=== PATIENT | male | born 1990 | race Caucasian/White ===

== ENCOUNTER 2020-06-02 09:39 | Emergency (ER) | payer OTHER, SELFPAY ==
--- NOTE | ~2020-06-02 | CT_ITS ---
EXAMINATION: CT abdomen pelvis w con DATE: 06/02/2020 11:26 INDICATION: Low abdominal pain. Diarrhea. TECHNIQUE: Computed tomography (CT) of the abdomen and pelvis was performed with 100 mL Omnipaque 350 intravenous contrast. Automated exposure control and iterative reconstruction technique were employe d. The dose-length product was 1031.44 mGy-cm. COMPARISON: CT abdomen and pelvis 08/18/2019 FINDINGS: The visualized portions of the lung bases demonstrate mild atelectasis on the right. No ple ural effusion. The heart size is normal. No pericardial effusion. The liver, gallbladder, spleen, clark creas, adrenal glands, and kidneys are normal. There is a left inguinal hernia containing fat. There are no dilated loops of bowel. There are changes of appendectomy. There are no pathologically enlarge d lymph nodes. There is no free intraperitoneal fluid. There is mild lumbar spondylosis. IMPRESSION: 1. Small left inguinal hernia containing fat. Reviewed, dictated and finalized at location A.
[2020-06-02 09:42] VITALS: BP 146/82; PULSE 79; RESP 20; TEMP 35.9; O2SAT 100
--- NOTE | 2020-06-02 09:51 | PC.NURSE ---
Pt to ED with complaints of lower abdominal cramping and diarrhea x7 days. Pt denies blood in stool. Denies nausea, vomiting, or fevers.
--- NOTE | 2020-06-02 09:57 | ED.ABDPAIN ---
HPI - Abdominal Pain General Chief Complaint: Abdominal Pain Stated Complaint: abd pain/diarrhea Time Seen by Provider: 06/02/20 09:49 Source: patient Mode of arrival: ambulatory Limitations: no limitations History of Present Illness HPI narrative: This patient is a 29 year old male who presents for evaluation of diarrhea and lower abdominal pain. He reports he has been having diarrhea for 7 days. Today he has had 3 episodes of loose stool but nonbloody. He also reports left lower abdominal pain before he has an episode of diarrhea. He reports mild pain currently. He thinks this diarrhea may have been caused by some deer meat he ate 1 week ago. He denies nausea, vomiting, fever, cough, sob, sore throat or loss of taste or smell. He has been taking immodium without relief. Related Data Allergies Allergy/AdvReac Type Severity Reaction Status Date / Time amlodipine Allergy Intermediate red face, Verified 06/02/20 09:43 Headaches losartan Allergy Intermediate red face Verified 06/02/20 09:43 and headaches Review of Systems Review of Systems: All systems reviewed & are unremarkable except as noted in HPI and below Constitutional: Constitutional: Denies chills and Denies fever(s) Respiratory: Respiratory: Denies cough and Denies dyspnea Gastrointestinal: Gastrointestinal: Reports abdominal pain, Reports diarrhea, Denies nausea and Denies vomiting Genitourinary: Genitourinary: Denies hematuria and Denies oliguria [facility] Past Medical History Medical History (Updated 06/02/20 @ 12:00 by Zuleima Rose MD) Hypertension Surgical History Surgical History (Updated 06/02/20 @ 10:01 by Zuleima Rose MD) History of eye surgery Hx of appendectomy Family History Family History Father Hypertension Social History Social History Smoking status: Former smoker Second hand tobacco smoke exposure: No Smoking end date: 08/17/14 Alcohol intake: current Substance use: current Substance use type: marijuana Other substance usage details: Occasional marijuana use. No recent use. Additional occupation/education comments: The patient works at [employer]. Gender identity (if verbalized by the patient): Male Spiritual care concerns: No Exam Const: General: no acute distress and alert Orientation/consciousness: patient oriented x3 HENMT: Head: atraumatic Face and sinus: face symmetric Eyes: EOM: EOMs intact bilaterally Resp: Effort & Inspection: normal respiratory effort and no retractions Auscultation: clear to auscultation bilaterally Cardio: Rate: regular rate Rhythm: regular rhythm Heart sounds: no murmurs GI: GI Palp: Yes Soft to palpation, No Tenderness to palpation present (GI), No Guarding due to palpation present (GI) and No Rigid due to palpation Skin: General skin exam: normal color Rashes: no rashes Neuro: General: patient oriented x3, moves all extremities and CN's II-XI intact bilaterally Course Reevaluation(s) Reevaluation #1: I discussed with patient that labs and Ct are unremarkable. HE has had diarrhea for 7 days and he thinks it may be due to eating deer. I Discussed discharge plan. Will prescribed 3 days of antibiotics due to prolonged period. Date: 06/02/20 Time: 11:57 Vital Signs Vital signs: Vital Signs Temperature 96.6 F L 06/02/20 09:42 Pulse Rate 79 06/02/20 09:42 Respiratory Rate 20 06/02/20 09:42 Blood Pressure 146/82 H 06/02/20 09:42 Pulse Oximetry 100 06/02/20 09:42 Temperature 96.6 F L 06/02/20 09:42 Pulse Rate 78 06/02/20 12:09 Respiratory Rate 16 06/02/20 12:09 Blood Pressure 128/70 06/02/20 12:09 Pulse Oximetry 100 06/02/20 12:09 MDM - Abdominal Pain Lab Data Attestation: I reviewed the patient's lab results. Result diagrams: 06/02/20 10:00
[2020-06-02 10:10] LABS: Basophils Absolute Auto 0.1 K/mm3 (0.0-0.1); Basophils Percent Auto 0.9 % (0.2-1.2); Eosinophils Absolute Auto 0.1 K/mm3 (0-0.3); Eosinophils Percent Auto 2.4 % (0-4.4); Hematocrit 46.2 % (42.0-52.0); Hemoglobin 15.8 g/dL (14.0-18.0); Immature Granulocyte Absolute 0.02 K/mm3 (0.00-0.031); Immature Granulocyte Percent A 0.4 % (0-0.5); Lymphocytes Absolute Auto 1.22 K/mm3 (0.9-3.2); Lymphocytes Percent Auto 22.4 % (18.3-44.2); Mean Corpuscular HGB Conc 34.2 g/dl (32-36); Mean Corpuscular Hemoglobin 30.8 pg (26-34); Mean Corpuscular Volume 90.1 fl (80-100); Mean Platelet Volume 10.2 fl (7.4-10.4); Monocytes Absolute Auto 0.7 K/mm3 (0.1-0.6); Monocytes Percent Auto 12.9 % (2.6-8.5); Neutrophils Absolute Auto 3.3 K/mm3 (1.3-6.7); Platelet Count Result 214 k/mm3 (150-375); Red Blood Count 5.13 M/mm3 (4.6-6.20); Red Cell Distribution Width 12.1 % (11.5-14.5); White Blood Count 5.4 K/mm3 (4.5-10.0)
[2020-06-02 10:12] VITALS: BP 135/95; PULSE 77
[2020-06-02 10:14] VITALS: BP 147/99; PULSE 80
[2020-06-02 10:15] VITALS: BP 169/88; PULSE 82
[2020-06-02] MEDS: LACTATED RINGERS 1,000 ML 999 ML IV CONT (10:18)
[2020-06-02 10:22] LABS: Alanine Aminotransferase 76 U/L (4-50); Albumin Level 4.7 g/dL (3.5-5.1); Alkaline Phosphatase 69 U/L (38-126); Anion Gap 7 mmol/L (8-16); Aspartate Amino Transferase 34 U/L (17-59); Bilirubin,Total 0.6 mg/dL (0.2-1.3); Blood Urea Nitrogen 16 mg/dL (9-20); Calcium 9.6 mg/dL (8.4-10.2); Carbon Dioxide 31 mmol/L (22-30); Chloride 104 mmol/L (98-107); Estimated CRCL calculation 110 ml/min; Estimated Glomerular Filt Rate > 60; Glucose 88 mg/dL (75-110); Lipase 57 U/L (23-300); Sodium 142 mmol/L (137-145)
[2020-06-02 10:27] LABS: Add Urine Microscopic? NO; Appearance Urine Clear (Clear); Bilirubin Urine Negative (Negative); Blood Urine Negative (Negative); Color Urine Yellow (Yellow); Glucose Urine UA Negative (Negative); Ketones Urine Negative (Negative); Leukocyte Esterase Ur Negative LEU/UL (Negative); Nitrate Urine Negative (Negative); Protein Urine Negative (Negative); Specific Grav Ur 1.021 (1.001-1.035); Urobilinogen Urine Negative mg/dL (<2.0)
[2020-06-02 12:09] VITALS: BP 128/70; PULSE 78; RESP 16; O2SAT 100
== END 2020-06-02 12:23 | disposition home or self-care (01) ==
PROVIDERS: Emergency Provider General Practice; PCP Internal Medicine
DX: R19.7 Diarrhea, unspecified (principal); I10 Essential (primary) hypertension; Z87.891 Personal history of nicotine dependence; K40.90 Unilateral inguinal hernia, without obstruction or gangrene, not specified as recurrent
CPT/HCPCS: 36415; 74177; 80053; 81003; 83690; 85025; 96360; 99284; J7120; Q9967

== ENCOUNTER 2021-05-30 10:53 | Outpatient (CLI) | payer OTHER, SELFPAY ==
--- NOTE | ~2021-05-30 | XR_ITS ---
XR lumbar spine 6V w bending DATE: 05/30/2021 11:25 INDICATION: Low back pain. Chronic right hip radiculopathy. TECHNIQUE: AP, lateral, coned lateral lumbosacral views and bilateral oblique views. Flexion and exte nsion lateral views. COMPARISON: None FINDINGS: Normal alignment of the lumbar vertebrae. No fracture or bone destruction or spondylolisthe sis. No instability on flexion or extension. The lumbar pedicles are intact. No pars interarticularis defects. Lumbosacral interspaces are well preserved. The sacroiliac joints appear normal. IMPRESSION: No significant abnormality Reviewed, dictated and finalized at location B. IMPRESSION: No significant abnormality
--- NOTE | ~2021-05-30 | XR_ITS ---
XR sacrum coccyx min 2V DATE: 05/30/2021 11:25 INDICATION: Sacrococcygeal pain TECHNIQUE: AP, angled AP and lateral views COMPARISON: None FINDINGS: No sacral or coccygeal fracture or bone destruction. Normal alignment at the pubic symphysi s and sacroiliac joints. IMPRESSION: Negative Reviewed, dictated and finalized at location B. IMPRESSION: Negative
== END 2021-05-30 10:54 | disposition home or self-care (01) ==
LOC: ANHIMG 10:58
PROVIDERS: PCP Physician Assistant; Visit Provider Physician Assistant
DX: M53.3 Sacrococcygeal disorders, not elsewhere classified (principal); M54.50 Low back pain, unspecified
CPT/HCPCS: 72114; 72220

== ENCOUNTER 2021-08-08 02:11 | Day surgery (SDC) | payer OTHER, SELFPAY ==
[2021-07-26 13:33] VITALS: BMI 33.4
--- NOTE | 2021-08-07 20:20 | PM.HPGS ---
History of Present Illness History of Present Illness Consent: Risks, benefits, and alternatives have been discussed and questions answered. Patient agrees to proceed with procedure. Chief complaint: constipation Narrative: Paul Yoo is a 30 year old male with a change in bowel habits. Earlier this year he had passed blood in his stools which was assumed to be hemorrhoidal. Later he notices stools were softer and flatter. Review of Systems Review of Systems: All systems reviewed & are unremarkable except as noted in HPI and below PMFSH Past Medical History Medical History Hypertension Surgical History Surgical History History of eye surgery Hx of appendectomy Family History Family History Father Hypertension Social History Social History Smoking status: Former smoker Tobacco type: cigarettes Second hand tobacco smoke exposure: No Smoking end date: 08/17/14 Additional smoking assessment comments: previously smoke socially Alcohol intake: current Alcohol use details: a few times a week - nothing since 2020 Substance use: never Substance use type: does not use Other substance usage details: Occasional marijuana use. No recent use. Living arrangements: with family Additional living arrangements comments: lives with girlfriend and son Additional occupation/education comments: The patient works at [employer]. Gender identity (if verbalized by the patient): Male Spiritual care concerns: No Meds Home Medications and Allergies Home Medications Medication Instructions Recorded Confirmed Type propranolol 80 mg PO DAILY 07/26/21 08/08/21 History Allergies Allergy/AdvReac Type Severity Reaction Status Date / Time amlodipine Allergy Intermediate red face, Verified 08/08/21 12:19 Headaches losartan Allergy Intermediate red face Verified 08/08/21 12:19 and headaches Exam Resp: Auscultation: clear to auscultation bilaterally Cardio: Rate: regular rate Rhythm: regular rhythm GI: GI Palp: Yes Soft to palpation and No Tenderness to palpation present (GI) Assessment and Plan Assessment and plan (1) Change in bowel habits: Code(s): R19.4 - Change in bowel habit Status: Acute Assessment and Plan: Colonoscopy with possible biopsy or polypectomy or cautery or injection of substances.
[2021-08-08 12:20] VITALS: BP 143/102; PULSE 98; RESP 17; TEMP 37.1; O2SAT 100; BMI 33.5
[2021-08-08] MEDS: LACTATED RINGERS 1,000 ML 150 ML IV CONT (12:28)
--- NOTE | 2021-08-08 12:42 | P.PNAN_ITS ---
Anes - Eval Pre Procedure Procedure: Operation Date: 08/08/21 13:30 Proposed Procedures p Colonoscopy - Cale Bunch MD Date/Time: 08/08/21 12:42 Pre Op Diagnosis: constipation Patient Data Age: 30 Gender: M Height: 1.88 m Weight: 118.7 kg Last Vital Signs Temp 98.7 F 08/08/21 12:20 Pulse 98 08/08/21 12:20 Resp 17 08/08/21 12:20 BP 143/102 H 08/08/21 12:20 Pulse Ox 100 08/08/21 12:20 Allergies Allergy/AdvReac Type Severity Reaction Status Date / Time amlodipine Allergy Intermediate red face, Verified 08/08/21 12:19 Headaches losartan Allergy Intermediate red face Verified 08/08/21 12:19 and headaches Home Medications Medication Instructions Recorded Confirmed Type propranolol 80 mg PO DAILY 07/26/21 08/08/21 History Patient hx anesthesia problems: none Family hx anesthesia problems: none Results Review: All pre-operative results and documents have been reviewed as part of the pre-operative evaluation. [facility] Past Medical History Medical History Change in bowel habits Hematochezia Hypertension Obesity (BMI 30.0-34.9) Surgical History Surgical History History of eye surgery Hx of appendectomy Family History Family History Father Hypertension Social History Social History Smoking status: Former smoker Tobacco type: cigarettes Second hand tobacco smoke exposure: No Smoking end date: 08/17/14 Additional smoking assessment comments: previously smoke socially Alcohol intake: current Alcohol use details: a few times a week - nothing since 2020 Substance use: never Substance use type: does not use Other substance usage details: Occasional marijuana use. No recent use. Living arrangements: with family Additional living arrangements comments: lives with girlfriend and son Additional occupation/education comments: The patient works at [employer]. Gender identity (if verbalized by the patient): Male Spiritual care concerns: No Exam Day of Procedure 08/08/21 12:42 Patient weight: overweight Heart: regular rate and rhythm Lungs: clear to auscultation Airway: Mallampati scale class II Neurological: alert and oriented
--- NOTE | 2021-08-08 12:47 | WPDANESEFPP ---
Anes - Eval Final PreProcedure Day of Procedure 08/08/21 12:47 Patient weight: overweight Heart: regular rate and rhythm Lungs: clear to auscultation Airway: Mallampati scale class II Neurological: alert and oriented Last oral intake: >/= 8 hours ASA classification: II Emergent: no Anesthetic plan: proceed Anesthesia type and monitoring: general GIVS and standard monitoring Results Review: All pre-operative results and documents have been reviewed as part of the pre-operative evaluation. Informed Consent: The patient's anesthetic plan and its attendant risks and benefits were discussed with the patient/family/POA. Questions were solicited and answers provided to the satisfaction of the patient/family/POA.
[2021-08-08 13:08] VITALS: BP 132/97; PULSE 103; RESP 18; O2SAT 96
[2021-08-08 13:18] VITALS: BP 113/79; PULSE 100; RESP 21; O2SAT 96
[2021-08-08 13:28] VITALS: BP 125/69; PULSE 101; RESP 19; O2SAT 98
== END 2021-08-08 13:41 | disposition home or self-care (01) ==
PROVIDERS: PCP Physician Assistant; Visit Provider Internal Medicine Gastroenterology
PROC: 0DJD8ZZ Inspection of Lower Intestinal Tract, Via Natural or Artificial Opening Endoscopic (ICD-10-PCS; CPT 45378; principal; 2021-08-08 13:30)
DX: R19.4 Change in bowel habit (principal); D12.5 Benign neoplasm of sigmoid colon
CPT/HCPCS: 45385; 88305; J2001; J2704; J7120

== ENCOUNTER 2022-06-23 10:49 | Outpatient (CLI) | payer OTHER, SELFPAY ==
[2022-06-23 11:38] LABS: SARS-CoV-2 RNA PCR Positive
[2022-06-23 16:27] LABS: Influenza A QL RT-PCR Negative (Negative); Influenza B QL RT-PCR Negative (Negative)
== END 2022-06-23 10:50 | disposition home or self-care (01) ==
LOC: ANHLAB 10:50
PROVIDERS: PCP Physician Assistant; Visit Provider Internal Medicine
DX: B34.9 Viral infection, unspecified (principal); Z20.822 Contact with and (suspected) exposure to COVID-19; U07.1 COVID-19
CPT/HCPCS: 87502; U0003; U0005

== ENCOUNTER 2022-09-18 00:38 | Day surgery (SDC) | payer OTHER, SELFPAY ==
[2022-09-09 14:44] VITALS: BMI 33.3
--- NOTE | 2022-09-09 14:49 | PC.NURSE ---
Report to the Outpatient Waiting Room, entrance under the green pavilion located off [facility], at time 1130 on date 09/18/22. Planned Procedure Time: 1330. Time changes happen often and if your time is changed the preop area will call you the afternoon before. - You and your visitor will be asked to self-screen and do not enter if you have any COVID symptoms. - Only one visitor is requested with a max of two and NO children visitors are allowed at this time. - The patient visitor may be requested to leave or wait in car when not with patient due to distancing restrictions. - A mask is optional within the hospital at this time. Patients may have clear liquids (water, carbonated beverages, clear teas, apple juice) until 3 hours prior to surgery with a maximum of 20 ounces. - No food from midnight until time of surgery Take the following medications with a SIP of water the morning of surgery: CYCLOBENZAPRINE, PROPRANOLOL DO NOT STOP ANY OF YOUR OTHER PRESCRIPTION MEDICATIONS PRIOR TO SURGERY EXCEPT THE FOLLOWING Medications to discontinue per physician: N/A Date to take last dose: N/A Please no make-up, nail romansh, hairspray, perfume, deodorant, or body powder the day of surgery. No jewelry (including any body piercings) or valuables the day of surgery, leave them at home. Please take a shower or bath the night before, or the morning of, surgery with an antibacterial soap. Wear comfortable, loose fitting clothing. - Jewelry must be removed prior to entering the operating room. Rings and piercings that are not removed may be cut off. - The hospital will not accept responsibility for valuables. - Please leave all valuables, including medications, at home the day of surgery. If you are going home after surgery, a licensed local owner operator truck driver must drive you home. - NO public transportation without another adult if you receive anesthesia. - We recommend that an adult stay with you for 24 hours following discharge. - We also recommend that you do not drive, make important decision, drink alcoholic beverages, or take any drugs that were not prescribed by your health care provider for at least 24 hours after your discharge time. Follow any additional instructions given to you from your surgeon. If you or anyone in your household have experienced Covid symptoms in the past week, please notify your surgeon or the nurse liaison at the phone number below for possible testing. Telephone instructions given to PT - MERON CAMERON and asked if any additional questions and then verbalized understanding. Patient advised to call surgeon office or pre surgery nurse liaison [phone] if any additional questions.
--- NOTE | 2022-09-18 08:10 | WPDANESEPPF ---
Anes - Initial Pre Proc Eval Procedure: Operation Date: 09/18/22 13:30 Proposed Procedures p Excision of Three Lipomas of the Trunk - Torres Brown MD Date/Time: 09/18/22 08:10 Surgeon: Torres Brown MD Pre Op Diagnosis: Three lipomas trunk area Patient Data Age: 31 Gender: M Height: 1.88 m Weight: 117.95 kg Allergies Allergy/AdvReac Type Severity Reaction Status Date / Time amlodipine Allergy Intermediate red face, Verified 09/18/22 12:08 Headaches losartan Allergy Intermediate red face Verified 09/18/22 12:08 and headaches Home Medications Medication Instructions Recorded Confirmed Type propranolol 80 mg capsule,24 See Rx Instructions .Route 06/18/22 09/18/22 Rx hr,extended release .COMPLEX #90 caps ketoconazole 2 % shampoo 1 applic topical 2XW #120 mL 08/04/22 09/18/22 Rx cyclobenzaprine 10 mg tablet 10 mg PO QHS PRN muscle spasm #30 09/09/22 09/18/22 Rx tabs Patient hx anesthesia problems: none Family hx anesthesia problems: none Results Review: All pre-operative results and documents have been reviewed as part of the pre-operative evaluation. [facility] Past Medical History Medical History Change in bowel habits Hematochezia Hypertension Obesity (BMI 30.0-34.9) Surgical History Surgical History History of eye surgery Hx of appendectomy Family History Family History Father Hypertension Social History Social History Smoking status: Never smoker Tobacco type: cigarettes Second hand tobacco smoke exposure: No Smoking end date: 08/17/14 Additional smoking assessment comments: previously smoke socially Alcohol intake: current Drinks per week: 12 Alcohol use details: ON WEEKENDS Substance use: never Substance use type: does not use Other substance usage details: Occasional marijuana use. No recent use. Lack of Transportation: No Lack of Food: Never True Current Housing: I Have Housing Concerned About Future Housing: No Difficulty Paying Gas/Electric Bills: No Difficulty Paying for Meds: No Currently Unemployed: No Education: High School Diploma/GED Difficulty w/ Childcare or Family Care: No Living arrangements: with family Additional living arrangements comments: lives with girlfriend and son Occupation/Education: occupation Additional occupation/education comments: The patient works at [employer]. Gender identity (if verbalized by the patient): Male Spiritual care concerns: No Anes - Eval Final PreProcedure Day of Procedure 09/18/22 08:10 Patient weight: obese Heart: regular rate and rhythm Lungs: clear to auscultation Airway: Mallampati scale class II Neurological: alert and oriented Last oral intake: >/= 8 hours ASA classification: III Emergent: no Anesthetic plan: proceed Anesthesia type and monitoring: general GIVS and LMA and standard monitoring Results Review: All pre-operative results and documents have been reviewed as part of the pre-operative evaluation. Informed Consent: The patient's anesthetic plan and its attendant risks and benefits were discussed with the patient/family/POA. Questions were solicited and answers provided to the satisfaction of the patient/family/POA.
--- NOTE | 2022-09-18 11:27 | WPDHPUPDATE1 ---
History and Physical Update Update Date/Time: 09/18/22 11:27 History and Physical has been reviewed, including an updated exam of the patient. There are NO changes in the patient's condition. Risks, benefits, and alternatives have been discussed and questions answered. Patient agrees to proceed with procedure.
[2022-09-18 11:29] VITALS: BP 132/87; PULSE 73; RESP 16; TEMP 36.5; O2SAT 100
[2022-09-18] MEDS: LACTATED RINGERS 1,000 ML 30 ML IV CONT ×2 (11:47→15:00)
[2022-09-18 15:05] VITALS: BP 122/64; PULSE 86; RESP 12; O2SAT 96
--- NOTE | 2022-09-18 15:19 | W.PM.PROC2 ---
Procedure Note - Detailed Date of Procedure 09/18/22 Pre-op Diagnosis Three lipomas trunk area Post-op Diagnosis Same Procedure Performed Excision 4 cm lipoma right flank, excision 3.8 cm lipoma right lower abdomen, excision 2.5 cm left upper per abdomen lipoma Surgeon Torres Brown MD [employer] Belle Patterson [facility] Anesthesia General (G IV S) and Local (0.5% Marcaine with epinephrine) Indications Patient is a 31-year-old man who has a family history of lipomas and has developed several subcutaneous nodules. He is bothered by 3 in particular that are on his trunk. He was seen in the office. These lipomas were examined and he is taken to surgery for excision. Findings 4 cm lipoma right flank, 3.8 cm lipoma right lower abdominal, 2.5 cm lipoma left upper abdomen Description of Procedure Patient was checked in the preoperative holding area. The area of each lipoma was marked on the skin. He was taken to the operating room and anesthesia was introduced. Prep and drape was carried out. We started with the patient in left lateral position. Local was infiltrated over the anticipated incision in the right flank. Incision was made. Dissection was carried down to the lipoma. Using blunt and sharp dissection, the lipoma was excised from the subcutaneous. No margin was obtained. Lipoma was measured and then placed in formalin to be passed off to pathology. The wound was made hemostatic with the cautery, the wound was closed in layers with 3-0 Vicryl followed by a running 4-0 Monocryl skin suture. The wound was dressed with Exofin surgical adhesive. These drapes were removed. Patient was placed in a supine position. The abdominal lipomas had been marked in the preoperative area. The abdomen was prepped and draped. Local was infiltrated over the areas of the 2 lipomas on the abdomen. Incision was made over each lipoma. Dissection on 1st the left-sided lipoma was carried out. The lipoma was dissected free using a combination of blunt and sharp dissection. Once freed it was measured. It was 2.5 cm. There was no margin. It was also placed in formalin. Attention was then turned to the right-sided lower incision. Dissection was carried down to the lipoma which was dissected free using a combination of blunt sharp dissection. It was measured and was 3.8 cm. It was also placed in formalin and passed off to pathology. Both wounds were made hemostatic with the cautery. Each wound was closed with subcuticular interrupted 4-0 Vicryl skin suture. Each wound was then closed at the skin level with a running 4-0 Monocryl skin suture. Both wounds were dressed with Exofin surgical adhesive. Patient was then awakened and taken to outpatient surgery in good condition. Sponge needle counts were correct x2. Estimated Blood Loss -5 Drains No Packing No Pathology Yes (Three lipomas as labeled above) Complications No immediate complications Condition Stable Disposition Same day [facility] Billing Surgery - Charge Forward: Surgery Billing (Excision 4 cm right flank lipoma, excision 3.8 cm right lower abdominal lipoma, excision 2.5 cm left upper abdominal lipoma.)
[2022-09-18 15:35] VITALS: BP 131/89; PULSE 81
[2022-09-18 16:05] VITALS: BP 151/94; PULSE 72; RESP 16
== END 2022-09-18 16:20 | disposition home or self-care (01) ==
PROVIDERS: PCP Physician Assistant; Visit Provider Surgery
PROC: (CPT 22903; principal; 2022-09-18 13:30)
DX: D17.1 Benign lipomatous neoplasm of skin and subcutaneous tissue of trunk (principal); I10 Essential (primary) hypertension; Z87.891 Personal history of nicotine dependence; E66.9 Obesity, unspecified; Z68.32 Body mass index [BMI] 32.0-32.9, adult
CPT/HCPCS: 22903 ×2; 22902; 88304; J0690; J1100; J2250; J2270; J2405; J2704; J7120

== ENCOUNTER 2022-11-03 17:48 | Emergency (ER) | payer OTHER, SELFPAY ==
[2022-11-03 19:02] VITALS: BP 138/95; PULSE 83; RESP 20; TEMP 36.6; O2SAT 98
--- NOTE | 2022-11-03 19:46 | ED.SKABFB ---
HPI - Skin/Abscess/Foreign Bdy General Chief complaint: Skin/Abscess/Foreign Body Stated complaint: Rash Source: patient Mode of arrival: ambulatory Limitations: no limitations History of Present Illness HPI narrative: 32-year-old male presents to [facility] with raised erythematous rash diffusely for the past week. Patient reports that the rash does itch at times. Patient has not tried applying any [id number] medications to area. Patient denies being ill with cold-like symptoms recently. Patient reports he was scheduled today to see his primary care provider but had to cancel as the son had an appointment today and he cannot make it to his appointment. Patient has not had similar rash in the past. Patient denies history of eczema or psoriasis. MD complaint: rash Onset (ago): week(s) (1) Location: generalized Relieving factors: none Exacerbating factors: none Context: none Associated symptoms: denies other symptoms Treatments prior to arrival: none Related Data Allergies Allergy/AdvReac Type Severity Reaction Status Date / Time amlodipine Allergy Intermediate red face, Verified 11/03/22 19:08 Headaches losartan Allergy Intermediate red face Verified 11/03/22 19:08 and headaches Review of Systems Constitutional: Constitutional: Denies chills, Denies fatigue, Denies fever(s) and Denies weakness ENT: Denies dizziness Respiratory: Respiratory: Denies cough, Denies dyspnea and Denies wheezing Gastrointestinal: Gastrointestinal: Denies diarrhea, Denies nausea and Denies vomiting Integumentary/Breasts: Skin/Breast: Reports pruritus, Denies erythema, Reports rash and Denies skin ulcer Neurologic: Denies dizziness, Denies syncope and Denies headache(s) [facility] Past Medical History Medical History Change in bowel habits Hematochezia Hypertension Obesity (BMI 30.0-34.9) Surgical History Surgical History History of eye surgery Hx of appendectomy S/P excision of lipoma excision 4 cm lipoma right flank, excision 3.8 cm lipoma right lower abdomen, excision 2.5 cm left upper abdominal lipoma 09/18/22 Family History Family History Father Hypertension Social History Social History Smoking status: Never smoker Tobacco type: cigarettes Second hand tobacco smoke exposure: No Smoking end date: 08/17/14 Additional smoking assessment comments: previously smoke socially Alcohol intake: current Drinks per week: 12 Alcohol use details: ON WEEKENDS Substance use: never Substance use type: does not use Other substance usage details: Occasional marijuana use. No recent use. Lack of Transportation: No Lack of Food: Never True Current Housing: I Have Housing Concerned About Future Housing: No Difficulty Paying Gas/Electric Bills: No Difficulty Paying for Meds: No Currently Unemployed: No Education: High School Diploma/GED Difficulty w/ Childcare or Family Care: No Living arrangements: with family Additional living arrangements comments: lives with girlfriend and son Occupation/Education: occupation Additional occupation/education comments: The patient works at [employer]. Gender identity (if verbalized by the patient): Male Spiritual care concerns: No Comments At time of signature, I agree with nursing past medical, surgical, social and family history. There is no relevant family history pertinent to the presenting complaint. Exam Const: General: healthy appearing and no acute distress Nutritional Appearance: well nourished Orientation/consciousness: patient oriented x3 Limitations: no limitations HENMT: Head: normal to inspection Eyes: Conjunctivae: conjunctivae normal Neck: Neck: normal visual inspection Resp: Effort
== END 2022-11-03 19:56 | disposition home or self-care (01) ==
PROVIDERS: Emergency Provider Nurse Practitioner Family; PCP Physician Assistant
DX: R21 Rash and other nonspecific skin eruption (principal); I10 Essential (primary) hypertension
CPT/HCPCS: 99213; G0463

== ENCOUNTER → 2022-11-18 11:42 | Outpatient (CLI) | payer OTHER, SELFPAY ==
--- NOTE | ~2022-11-18 | XR_ITS ---
EXAMINATION: XR toe 1st LT min 2V INDICATION: Left first toe pain TECHNIQUE: Three views of the left first toe are obtained. COMPARISON: None available FINDINGS: No fracture, dislocation, or subluxation. The bones, soft tissues, and joint spaces are nor mal. IMPRESSION: 1. No acute osseous abnormality. Reviewed, dictated and finalized at location F.
== END ==
PROVIDERS: PCP Internal Medicine; Visit Provider Physician Assistant
DX: M79.676 Pain in unspecified toe(s) (principal)
CPT/HCPCS: 73660

== ENCOUNTER → 2023-04-22 10:44 | Outpatient (CLI) | payer OTHER, SELFPAY ==
--- NOTE | ~2023-04-22 | MM_ITS ---
EXAMINATION: MM diagnostic abigail RT w jaden HISTORY: Right breast lump TECHNIQUE: Bilateral MLO and right CC 3-D tomosynthesis images were performed and synthetic 2-D image s were generated. CAD analysis was submitted and interpreted. COMPARISON: None BREAST PARENCHYMAL COMPOSITION: The breasts are almost entirely fatty. FINDINGS: No suspicious mass, architectural distortion, malignant calcification, skin thickening or r etraction of either breast is detected. IMPRESSION: 1. No mammographic evidence of malignancy 2. No further diagnostic workup is necessary. BI-RADS Category 1: Negative Reviewed, dictated and finalized at location A.
== END ==
PROVIDERS: PCP Physician Assistant; Visit Provider Physician Assistant
DX: N63.10 Unspecified lump in the right breast, unspecified quadrant (principal)
CPT/HCPCS: 77061; 77065; G0279

== ENCOUNTER 2023-04-29 10:35 | Emergency (ER) | payer OTHER, SELFPAY ==
[2023-04-29 11:08] VITALS: BP 134/92; PULSE 77; RESP 20; TEMP 36.4; O2SAT 100
[2023-04-29] MEDS: TETANUS,DIPHTHERIA,AC PERTUSSIS ADULT (0.5 ML) BOOSTRIX IM (11:50)
--- NOTE | 2023-04-29 11:56 | ED.ANIMALBIT ---
HPI - Animal Bite General Chief Complaint: Animal Bite Stated Complaint: Rabies shot Time Seen by Provider: 04/29/23 11:24 History of Present Illness HPI narrative: 32-year-old male presents to the emergency room for suspected exposure to a bat that occurred yesterday. Patient states that he has a small superficial scratch on his left ankle. States he contacted the [facility] department was instructed to come here for evaluation and possible rabies immunoglobulin immunizations. Related Data Allergies Allergy/AdvReac Type Severity Reaction Status Date / Time amlodipine Allergy Intermediate red face, Verified 11/18/22 09:14 Headaches losartan Allergy Intermediate red face Verified 11/18/22 09:14 and headaches Review of Systems Review of Systems: CONSTITUTIONAL: Denies fever, chills, or sweats. EYES: Denies visual changes, redness, or discharge. ENT: Denies rhinorrhea, congestion, sore throat, or otalgia. CARDIOVASCULAR: Denies chest pain, palpitations, or edema. RESPIRATORY: Denies cough or dyspnea. GASTROINTESTINAL: Denies abdominal pain, nausea, vomiting, or diarrhea. GENITOURINARY: Denies dysuria or hematuria. SKIN: Denies rash or itching. MUSCULOSKELETAL: Denies back pain, joint pain, or myalgia. NEUROLOGIC: Denies headache, numbness, dizziness, or weakness. PSYCHIATRIC: Denies anxiety or depression. [facility] Past Medical History Medical History Change in bowel habits Hematochezia Hypertension Obesity (BMI 30.0-34.9) Surgical History Surgical History History of eye surgery Hx of appendectomy S/P excision of lipoma excision 4 cm lipoma right flank, excision 3.8 cm lipoma right lower abdomen, excision 2.5 cm left upper abdominal lipoma 09/18/22 Family History Family History Father Hypertension Social History Social History Smoking status: Never smoker Tobacco type: cigarettes Second hand tobacco smoke exposure: No Smoking end date: 08/17/14 Additional smoking assessment comments: previously smoke socially Alcohol intake: current Drinks per week: 12 Alcohol use details: ON WEEKENDS Substance use: never Substance use type: does not use Other substance usage details: Occasional marijuana use. No recent use. Lack of Transportation: No Lack of Food: Never True Current Housing: I Have Housing Concerned About Future Housing: No Difficulty Paying Gas/Electric Bills: No Difficulty Paying for Meds: No Currently Unemployed: No Education: High School Diploma/GED Difficulty w/ Childcare or Family Care: No Living arrangements: with family Additional living arrangements comments: lives with girlfriend and son Occupation/Education: occupation Additional occupation/education comments: The patient works at [employer]. Gender identity (if verbalized by the patient): Male Spiritual care concerns: No Exam Narrative: GENERAL: Well-appearing, well-nourished, no physical limitations, and in no acute distress. HEAD: Normocephalic, atraumatic. EYES: Conjunctivae normal, PERRLA and EOMI. CHEST: Clear to auscultation. No respiratory distress. No wheezes rales or rhonchi. HEART: Regular rate and rhythm. No murmur heard. Normal peripheral pulses. EXTREMITIES: Normal range of motion. No edema. No clubbing or cyanosis SKIN: Warm, dry, no rash. Left lower le cm superficial to left ankle. No bleeding noted. No erythema no purulent discharge noted. NEURO: No focal deficits. Alert and oriented x3. MAEW. CN's II-XI intact bilaterally, normal gait PSYCH: Cooperative. Normal mood and affect. Course Vital Signs Vital signs: Vital Signs Temperature 36.4 C 04/29/23 11:08 Pulse Rate 77 04/29/23 11:08 Respiratory Rat
[2023-04-29] MEDS: RABIES VACCINE (RABAVERT) 2.5 UNITS VIAL IM (13:32)
[2023-04-29] MEDS: RABIES IMMUNE GLOBULIN/PF 300 UNITS/ML VIAL 870 UNITS INFILTRATE (13:43)
[2023-04-29] MEDS: RABIES IMMUNE GLOBULIN/PF 1,500 UNITS/5 ML VIAL 1500 UNITS INFILTRATE (13:43)
--- NOTE | 2023-04-29 13:43 | PC.NURSE ---
pt received rabies vaccine in RIGHT delt. all other inj. were administered in bilateral thighs and LEFT delt.
[2023-04-29 13:44] VITALS: BP 132/89; PULSE 71; RESP 15; TEMP 36.7; O2SAT 99
== END 2023-04-29 13:46 | disposition home or self-care (01) ==
PROVIDERS: Emergency Provider Nurse Practitioner Family; PCP Physician Assistant
DX: S90.512A Abrasion, left ankle, initial encounter (principal); Z20.3 Contact with and (suspected) exposure to rabies; Z23 Encounter for immunization; I10 Essential (primary) hypertension; E66.9 Obesity, unspecified; Z68.33 Body mass index [BMI] 33.0-33.9, adult; Z87.891 Personal history of nicotine dependence; W55.89XA Other contact with other mammals, initial encounter
CPT/HCPCS: 90375; 90471; 90472; 90675; 90715; 96372; 99284

== ENCOUNTER 2023-05-13 11:40 | Outpatient (RCR) | payer OTHER, SELFPAY ==
--- NOTE | 2023-05-06 10:16 | PC.NURSE ---
AMBULATORY TO DRAW STATION FOR OUTPATIENT RABIES INJECTION #3. STATES IS FEELING GREAT . DENIES NAUSEA, BODY ACHES AND FATIGUE.
== END 2023-07-31 23:59 | disposition home or self-care (01) ==
LOC: ANHLAB 11:40
PROVIDERS: PCP Physician Assistant; Visit Provider Nurse Practitioner Family
DX: Z29.14 Encounter for prophylactic rabies immune globulin (principal); Z20.3 Contact with and (suspected) exposure to rabies
CPT/HCPCS: 90471; 90675

== ENCOUNTER 2023-08-20 09:09 | Emergency (ER) | payer OTHER, SELFPAY ==
[2023-08-20] VITALS (10 sets, daily range): BP systolic 142–157; BP diastolic 86–94; PULSE 71–83; RESP 13–20; TEMP 36.8; O2SAT 95–99
--- NOTE | ~2023-08-20 | XR_ITS ---
Clinical Indication: Chest pain PA and lateral views of the chest: Comparison: 02/19/2006 Findings: The lungs are clear, without evidence of focal consolidation or pleural effusion. Cardiome diastinal silhouette is within normal limits. Bones and soft tissues are unremarkable. Impression: Normal chest. Reviewed, dictated and finalized at location . AL TRAINING AIDE Impression: Normal chest.
--- NOTE | 2023-08-20 09:11 | ECG_ITS ---
Measurements Intervals [place] Rate: 77 P: 34 [place]: 179 QRS: 36 QRSD: 122 T: 1 QT: 361 QTc: 411 Interpretive Statements SINUS RHYTHM INTRAVENTRICULAR CONDUCTION DELAY BORDERLINE ST-T WAVE ABNORMALITY- INFERIOR LEADS BASELINE WANDER- V4 BORDERLINE ECG COMPARED TO ECG 08/18/2019 15:02:09 NO SIGNIFICANT CHANGES Electronically Signed On 08-20-2023 9:23:52 MANAGER TREASURY by Victor Manuel Tran D.O.
[2023-08-20] MEDS: ASPIRIN 81 MG CHEWABLE TABLET 324 MG PO (09:26)
[2023-08-20 09:47] LABS: Basophils Percent Auto 0.9 % (0.2-1.2); Eosinophils Absolute Auto 0.1 K/mm3 (0-0.3); Eosinophils Percent Auto 2.4 % (0-4.4); Hematocrit 47.9 % (42.0-52.0); Immature Granulocyte Absolute 0.02 K/mm3 (0.00-0.031); Immature Granulocyte Percent A 0.5 % (0-0.5); Lymphocytes Absolute Auto 1.28 K/mm3 (0.9-3.2); Lymphocytes Percent Auto 30.2 % (18.3-44.2); Mean Corpuscular HGB Conc 33.4 g/dl (32-36); Mean Corpuscular Hemoglobin 30.3 pg (26-34); Mean Corpuscular Volume 90.7 fl (80-100); Mean Platelet Volume 10.4 fl (7.4-10.4); Monocytes Absolute Auto 0.6 K/mm3 (0.1-0.6); Monocytes Percent Auto 13.4 % (2.6-8.5); Neutrophils Absolute Auto 2.2 K/mm3 (1.3-6.7); Neutrophils Percent Auto 52.6 % (45.5-73.1); Platelet Count Result 228 k/mm3 (150-375); Red Blood Count 5.28 M/mm3 (4.6-6.20); Red Cell Distribution Width 12.9 % (11.5-14.5); White Blood Count 4.2 K/mm3 (4.5-10.0)
[2023-08-20 10:04] LABS: Prothrombin Time 13.1 Seconds (11.1-14.7)
[2023-08-20 10:05] LABS: Partial Thromboplastin Time 27.9 SECONDS (22.3-36.8)
[2023-08-20 10:06] LABS: Alanine Aminotransferase 72 U/L (6-50); Albumin Level 4.6 g/dL (3.5-5.1); Alkaline Phosphatase 57 U/L (38-126); Anion Gap 12 mmol/L (8-16); Aspartate Amino Transferase 39 U/L (17-59); Bilirubin,Total 0.7 mg/dL (0.2-1.3); Blood Urea Nitrogen 16 mg/dL (9-20); Calcium 9.4 mg/dL (8.4-10.2); Carbon Dioxide 23 mmol/L (22-30); Chloride 103 mmol/L (98-107); Estimated CRCL calculation 144 ml/min; Estimated Glomerular Filt Rate > 60; Glucose 101 mg/dL (65-110); Lipase 63 U/L (23-300); Potassium 4.1 mmol/L (3.4-5.0); Sodium 138 mmol/L (137-145)
--- NOTE | 2023-08-20 10:17 | ED.GENADULT ---
[facility] - General Adult General Chief complaint: Chest Pain Stated complaint: Chest pain Time Seen by Provider: 08/20/23 09:49 Source: patient Mode of arrival: ambulatory Limitations: no limitations History of Present Illness HPI narrative: This is a 32 year old male who presents to the ED with chief complaint of chest pain intermittent for the past 3 days. Reports that the pain the central chest feels like a spasm/sharp pain. Reports it lasts for few seconds and goes away. He has never experienced anything like this in the past. Denies any exertional component. Denies syncope, vomiting, radiation of pain. Denies shortness of breath, leg swelling, palpitations, abdominal pain. Related Data Allergies Allergy/AdvReac Type Severity Reaction Status Date / Time amlodipine Allergy Intermediate red face, Verified 08/20/23 09:24 Headaches losartan Allergy Intermediate red face Verified 08/20/23 09:24 and headaches Review of Systems Review of Systems: All systems as dictated in [facility] Past Medical History Medical History Change in bowel habits Hematochezia Hypertension Obesity (BMI 30.0-34.9) Surgical History Surgical History History of eye surgery Hx of appendectomy S/P excision of lipoma excision 4 cm lipoma right flank, excision 3.8 cm lipoma right lower abdomen, excision 2.5 cm left upper abdominal lipoma 09/18/22 Family History Family History Father Hypertension Social History Social History Smoking status: Never smoker Tobacco type: cigarettes Second hand tobacco smoke exposure: No Smoking end date: 08/17/14 Additional smoking assessment comments: previously smoke socially Alcohol intake: current Drinks per week: 12 Alcohol use details: ON WEEKENDS Substance use: never Substance use type: does not use Other substance usage details: Occasional marijuana use. No recent use. Lack of Transportation: No Lack of Food: Never True Current Housing: I Have Housing Concerned About Future Housing: No Difficulty Paying Gas/Electric Bills: No Difficulty Paying for Meds: No Currently Unemployed: No Education: High School Diploma/GED Difficulty w/ Childcare or Family Care: No Living arrangements: with family Additional living arrangements comments: lives with girlfriend and son Occupation/Education: occupation Additional occupation/education comments: The patient works at [employer]. Gender identity (if verbalized by the patient): Male Spiritual care concerns: No Exam Narrative: GENERAL: Well-appearing, well-nourished, and in no acute distress. HEAD: Normocephalic, atraumatic. EYES: PERRLA and EOMI. ENT: Nares clear, no rhinorrhea or epistaxis. Mucous membranes moist. Oropharynx without tonsillar hypertrophy exudate or other lesions. NECK: Supple. No adenopathy or masses. CHEST: No respiratory distress. Clear to auscultation. No wheezes rales or rhonchi HEART: Regular rate and rhythm. No murmur heard. Normal peripheral pulses. ABDOMEN: Soft, nontender, nondistended, normal active bowel sounds. MSK: Normal range of motion. No edema. SKIN: Warm, dry, no rash. NEURO: Alert and oriented x3. No focal deficits. PSYCH: Normal mood and affect. Course Vital Signs Vital signs: Vital Signs Temperature 98.2 F 08/20/23 09:19 Pulse Rate 83 08/20/23 09:19 Respiratory Rate 18 08/20/23 09:19 Blood Pressure 143/88 H 08/20/23 09:19 Pulse Oximetry 99 08/20/23 09:19 Oxygen Delivery Room Air 08/20/23 09:19 Temperature 98.2 F 08/20/23 09:19 Pulse Rate 72 08/20/23 11:18 Respiratory Rate 20 08/20/23 11:18 Blood Pressure 142/86 H 08/20/23 10:46 Pulse Oximetry 96 08/20/23 11:18 Oxygen D
[2023-08-20 10:18] LABS: Troponin I < 0.012 ng/mL (0.000-0.034)
== END 2023-08-20 12:09 | disposition home or self-care (01) ==
PROVIDERS: Emergency Medicine; Emergency Provider Physician Assistant; PCP Physician Assistant
DX: R07.89 Other chest pain (principal); I10 Essential (primary) hypertension; E66.9 Obesity, unspecified; Z68.34 Body mass index [BMI] 34.0-34.9, adult; Z87.891 Personal history of nicotine dependence; I45.9 Conduction disorder, unspecified; R94.31 Abnormal electrocardiogram [ECG] [EKG]
CPT/HCPCS: 36415; 71046; 80053; 83690; 84484; 85025; 85610; 85730; 93005; 99284; A9270

== ENCOUNTER 2024-09-21 15:50 | Outpatient (CLI) | payer OTHER, SELFPAY ==
--- NOTE | ~2024-09-21 | CT_ITS ---
EXAMINATION: CT brain wo con DATE: 09/21/2024 16:04 INDICATION: Headache, unspecified. TECHNIQUE: Computed tomography (CT) of the head was performed without intravenous contrast. The mA wa s adjusted according to patient size. Iterative reconstruction technique was employed. The dose-lengt h product was 681.00 mGy-cm. COMPARISON: Head CT 02/19/2006 FINDINGS: There is no intracranial hemorrhage, acute infarction, or abnormal intracranial mass lesion . The ventricles are normal in size. The orbits are normal. The paranasal sinuses are clear. The mast oid air cells are normal. IMPRESSION: 1. Normal brain. Reviewed, dictated and finalized at location A. OR VISUAL DESIGNER IMPRESSION: 1. Normal brain.
--- OUTSIDE RECORDS SUMMARY | 2024-09-21 16:06 | XMS_ITS | Encounter Summary ---
Author Organization [facility] Address [address] [place] [address] Care Team Providers Care Sample Preparation Supervisor Name Role Phone Unavailable Primary Care Provider Unavailabl e Encounter Details Date Type Department Care Team (Late st Contact Info) Description 12/31/2022 Lab Requisition [facility] Services [address] [facility] [address] [place] [address] [place] [id number] [facility] [address] [place] [phone] Social History Tobacco Use Types Packs/Day Years Used Date Smoking Tobacco: Never Smokeless Tobacco: Never Alcohol Use Standard Drinks/Week Comments Yes 12 (1 standard drink = 0.6 oz pu re alcohol) occasionally Sex and Gender Information Value Date Recorded Sex Assigned at Not on file 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 Gender Identity Not on file Sexual Orientation Not on file documented as of this encounter Plan of Treatment Not on file documented as of this encounter Procedures Procedure Name Priority Date/Time Associated Diagnosis Comments SOURCE NEEDLESTICK PANEL Stat 12/31/2022 11:55 AM CDT EXPOSURE PANEL COMPLETION Stat 12/31/2022 11:55 AM CDT HIV DETECTION W/REFLX CONFIRMATION Stat 12/31/2022 11:55 AM CDT HEPATITIS C RNA PCR, QUANTITATIVE Stat 12/31/2022 11:55 AM CDT HEPATITIS B SURFACE ANTIGEN Stat 12/31/2022 11:55 AM CDT documented in this encounter Results * EXPOSURE PANEL COMPLETION (12/31/2022 11:55 AM CDT) [facility] EXPOSURE PANEL RECEIVED Yes 12/31/2022 5:11 PM CDT [facility] Blood 12/31/2022 11:5 5 AM CDT 12/31/2022 4:14 PM CDT Kaushik Marcial MD CHEMISTRY ORDERABLES Final R esult Performing Organization Address [facility] Co de Phone Number [id number] [address] [place] [address] * HEPATITIS B SURFACE ANTIGEN (12/31/2022 11:55 AM CDT) [facility] HEPATITIS B SURFACE AG NON-REACT KADE Non-react kade 12/31/2022 4:49 PM CDT [facility] Comment:A non-reactive test result does not exclude the possibility of exposure to or infection with hepatitis B. Blood 12/31/2022 11:5 5 AM CDT 12/31/2022 4:14 PM CDT Kaushik Marcial MD CHEMISTRY ORDERABLES Final R esult Performing Organization Address [facility]/ZIP Co de Phone Number [facility] CLIA# [id number] [address] [place] [address] * HEPATITIS C RNA PCR, QUANTITATIVE (12/31/2022 11:55 AM CDT) [facility] HCV RNA, QUANT REAL TIME PCR <15 NOT DETECTED NOT DETECTED IU/mL 01/01/2023 11:03 PM CDT [facility] HCV RNA QUANT PCR COPIES IU/ML <1.18 NOT DETECTED NOT DETECTED Log IU/mL 01/01/2023 11:03 PM CDT [facility] Comment: This test was performed using Real-Time Polymerase Chain Reaction. Reportable Range: 15 IU/mL to 100,000,000 IU/mL (1.18 Log IU/mL to 8.00 Log IU/mL). The analytical performance characteristics of this assay have been determined by [employer]. The modifications have not been cleared or approved by the FDA. This assay has been validated pursuant to the CLIA regulations and is used for clinical purposes. For more information on this test, go to: http://education.Met[employer]/faq/EKQ52w1 (This link is being provided for informational/ educational purposes only.) Blood 12/31/2022 11:5 5 AM CDT 12/31/2022 4:14 PM CDT Narrative [facility] - 01/01/2023 11:03 PM CDT Performing Organization Information: Site ID: [id number] Name: [facility] Address: [address] [place] [address] Director: Andressa Koroma MD Kaushik Marcial MD CHEMISTRY ORDERABLES Final R esult [facility] [phone] * HIV DETECTION W/REFLX CONFIRMATION (12/31/2022 11:55 AM CDT) HIV-1 AND 2 ABS AND HIV-1 AG Non-reacti ve Non-reacti ve 12/31/2022 5:08 PM CDT [facility] [employer] [facility] Blood 12/31/2022 11:5 5 AM CDT 12/31/2022 4:14 PM CDT [facility] [employer] [facility] - 12/31/2022 5:08 PM CDT Initial HIV testing was performed by [employer] on the Lesvia Lala e602 module. Values obtained with different assay methods cannot be used interchangeably. Non- Reactive results does not rule out HIV infection. If acute HIV-1 infection is suspected, submit plasma specimen for HIV-1 RNA quantification test (HIVQU). us Kaushik Marcial MD CHEMISTRY ORDERABLES Final R esult Performing Organization Address City/State/[facility] Co de Phone Number [facility]# [id number] [address] [place] [address] documented in this encounter Visit Diagnoses Not on filedocumented in this encounter"
--- OUTSIDE RECORDS SUMMARY | 2024-09-21 16:06 | XMS_ITS | Clinical Summary ---
Author Organization [facility] [employer] Address [address] [address] Care Team Providers Care Paper Novelty Maker Name Role Phone Unavailable Primary Care Provider Unavailabl e Allergies No known active allergies Medications propranolol (INDERAL LA) 80 mg Long Acting 24 hour capsule Take 1 Capsule by mouth daily. 9 Active allopurinoL (ZYLOPRIM) 100 mg tablet Take 100 mg by mouth 3 times daily. Active risankizumab-rz aa (SKYRIZI SUBCUT) Inject 150 mg by subcutaneous injection. Active ergocalciferol (VITAMIN D2) 50,000 unit capsuleIndicati ons:Vitamin D deficiency Take 1 Capsule (50,000 Units) by mouth every 7 days. 12 Capsule 4 Active Active Problems Problem Noted Date Diagnosed Date Essential hypertension 08/18/2019 Encounters Date Type Department Care Team Description 09/14/2024 External Device Data [facility] ABSTRACTION Provider, Abstract 09/08/2024 External Device Data [facility] ABSTRACTION Provider, Abstract from Last 3 Months Immunizations Immunization Administration Dates Next Due INFLUENZA VACCINE QUADRIVALENT 3 YR UP PF IM INFLUENZA VACCINE TRIVALENT SPLIT VIRUS, (6 MOS UP), 0.5ML (PF), IM 05/26/2024 Family History Medical History Relation Name Comments Hypertension Father Jung Yoo No Known Problems Half-Brother Unknown Maternal Grandfather Unknown Maternal Grandmother No Known Problems Mother Hypertension Paternal Grandfather Aleksey Yoo No Known Problems Paternal Grandmother Relation Name Status Comments Father Jung Yoo Alive Half-Brother Alive Maternal Grandfather Maternal Grandmother Mother Alive Paternal Grandfather Aleksey Yoo Alive Paternal Grandmother Alive Social History Tobacco Use Types Packs/Day Years Used Date Smoking Tobacco: Never Smokeless Tobacco: Never Tobacco Cessation:Counseling Given: Not Answered Alcohol Use Standard Drinks/Week Comments Yes 30 (1 standard drink = 0.6 oz pu re alcohol) Sex and Gender Information Value Date Recorded Sex Assigned at Not on file 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 Gender Identity Not on file Sexual Orientation Not on file Last Filed Vital Signs Vital Sign Reading Time Taken Comments Blood Pressure 118/84 09/16/2023 10:59 AM AQUATIC BIOLOGIST Pulse 74 09/16/2023 10:59 AM AQUATIC BIOLOGIST Temperature 36.6 C (97.8 F) 09/16/2023 10:59 AM AQUATIC BIOLOGIST Respiratory Rate 16 09/16/2023 10:59 AM AQUATIC BIOLOGIST Oxygen Saturation 97% 09/16/2023 10:59 AM AQUATIC BIOLOGIST Inhaled Oxygen Concentration - - Weight 126.1 kg (278 lb) 09/16/2023 10:59 AM AQUATIC BIOLOGIST Height 188 cm (6' 2 ) 09/16/2023 10:59 AM AQUATIC BIOLOGIST Body Mass Index 35.69 09/16/2023 10:59 AM AQUATIC BIOLOGIST Plan of Treatment Health Maintenance Due Date Last Done Comments DTAP/TDAP/TD VACCINES (1 - Tdap) 10/28/2010 HEPATITIS B VACCINES (1 of 3 - 19+ 3-dose series) 10/28/2010 INFLUENZA VACCINE Completed 05/26/2024, 04/30/2020, 06/01/2019 HPV VACCINES Aged Out No longer eligi ble based on patient's age to complete this topic PNEUMOCOCCAL VACCINE 0-64 YEARS Aged Out No longer eligible b ased on patient's age to complete this topic
--- OUTSIDE RECORDS SUMMARY | 2024-09-21 16:06 | XMS_ITS | Clinical Summary ---
Author Organization [facility] [place] Address [address] [place] [id number] Care Team Providers Care Resolution Manager Name Role Phone Sonia Hay [place] [facility] Primary Care Provider + Allergies No known active allergies Medications propranolol LA (INDERAL LA) 80 MG 24 hr capsule Take 1 capsule (80 mg total) by mouth daily. 07/12/2023 Active Encounters Date Type Department Care Team Description 07/04/2024 5:33 PM DEPUTY SHERIFF LIEUTENANT - 07/04/2024 8:29 PM DEPUTY SHERIFF LIEUTENANT Emergency [facility] Emergency Room [address] [place] [address] Michael Rose MD Chest Pain Discharge Disposition: Home or Self Care (Routine Discharge) 07/04/2024 Travel from Last 3 Months Social History Tobacco Use Types Packs/Day Years Used Date Smoking Tobacco: Never Smokeless Tobacco: Never Tobacco Cessation:Counseling Given: Not Answered Alcohol Use Standard Drinks/Week Comments Yes 0 (1 standard drink = 0.6 oz pur e alcohol) socially Sex and Gender Information Value Date Recorded Sex Assigned at Not on file Legal Sex Male 6:16 PM CDT Gender Identity Not on file Sexual Orientation Not on file Last Filed Vital Signs Vital Sign Reading Time Taken Comments Blood Pressure 131/80 07/04/2024 8:00 PM DEPUTY SHERIFF LIEUTENANT Pulse 74 07/04/2024 8:00 PM DEPUTY SHERIFF LIEUTENANT Temperature 36.7 C (98 F) 07/04/2024 8:00 PM DEPUTY SHERIFF LIEUTENANT Respiratory Rate 23 07/04/2024 8:00 PM DEPUTY SHERIFF LIEUTENANT Oxygen Saturation 94% 07/04/2024 8:00 PM DEPUTY SHERIFF LIEUTENANT Inhaled Oxygen Concentration - - Weight 118 kg (260 lb 2.3 oz) 07/04/2024 5:34 PM DEPUTY SHERIFF LIEUTENANT Height 188 cm (6' 2 ) 07/04/2024 5:34 PM DEPUTY SHERIFF LIEUTENANT Body Mass Index 33.4 07/04/2024 5:34 PM DEPUTY SHERIFF LIEUTENANT Plan of Treatment Health Maintenance Due Date Last Done Comments Annual Physical 10/28/1994 PHQ-2 (Physician [place]) 2003 Hepatitis C 10/28/2009 Hepatitis B Vaccines (1 of 3 - 19+ 3-dose series) 10/28/2010 HPV Vaccines (3 - Male 3-dos e series) 08/02/2018 05/10/2018, 01/19/2017 COVID-19 Vaccine (3 - 2023-2 5 season) 2024 05/21/2021, 04/30/2021 PHQ-2 (Physician [place]) 08/17/2024 DTaP, Tdap and Td Vaccines ( 3 - Td or Tdap) 04/29/2033 04/29/2023, 01/19/2015 Influenza Adult Completed 05/26/2024, 04/30/2020, 05/10/2018 Meningococcal B Vaccine Aged Out No l onger eligible based on patient's age to complete this topic Meningococcal Vaccine Aged Out No terrance sunny eligible based on patient's age to complete this topic Pneumococcal Vaccine: Pediatrics (0 to 5 Years) and At-Risk Patients (6 to 64 Years) Aged Out No longer eligible b ased on patient's age to complete this topic RSV Immunizations Under 20 Months Aged Out No longer eligible b ased on patient's age to complete this topic Procedures Procedure Name Priority Date/Time Associated Diagnosis Comments TROPONIN, QUANT TIMED 07/04/2024 7:45 PM DEPUTY SHERIFF LIEUTENANT XR CHEST PA+LAT STAT 07/04/2024 6:21 PM DEPUTY SHERIFF LIEUTENANT TROPONIN, QUANT STAT 07/04/2024 5:45 PM DEPUTY SHERIFF LIEUTENANT COMPREHENSIVE METABOLIC PANEL STAT 07/04/2024 5:45 PM DEPUTY SHERIFF LIEUTENANT D-DIMER, QUANTITATIVE STAT 07/04/2024 5:45 PM DEPUTY SHERIFF LIEUTENANT PARTIAL THROMBOPLASTIN TIME,PTT STAT 07/04/2024 5:45 PM DEPUTY SHERIFF LIEUTENANT PROTHROMBIN TIME, VENOUS STAT 07/04/2024 5:45 PM DEPUTY SHERIFF LIEUTENANT CBC W/DIFF AUTOMATED STAT 07/04/2024 5:45 PM DEPUTY SHERIFF LIEUTENANT ECG 12-LEAD Routine 07/04/2024 5:36 PM DEPUTY SHERIFF LIEUTENANT from Last 3 Months Results * TROPONIN, QUANT (07/04/2024 7:45 PM DEPUTY SHERIFF LIEUTENANT) Only the most recent of2 resultswithin the time period is included. TROPONIN I HIGH SENSITIVITY <4 0 - 75 ng/L 07/04/2024 8:16 PM DEPUTY SHERIFF LIEUTENANT [facility] Comment: HIGH DOSES OF BIOTIN, TROPONIN-SPECIFIC AUTOANTIBODIES, AND ANTIBODY THERAPY CONTAINING HAMA MAY INTERFERE WITH THIS TEST RESULT. CORRELATION TO CLINICAL HISTORY AND PRESENTATION RECOMMENDED. 07/04/2024 7:45 PM DEPUTY SHERIFF LIEUTENANT us Michael Rose MD LABORATORY Final Result [facility] [address] [place] [id number], [place] [phone] * XR CHEST PA+LAT (07/04/2024 6:21 PM DEPUTY SHERIFF LIEUTENANT) Anatomical Region Laterality Modality Chest Radiographic Gayle ging 07/04/2024 6:21 PM DEPUTY SHERIFF LIEUTENANT Impressions 07/04/2024 6:22 PM DEPUTY SHERIFF LIEUTENANT IMPRESSION: No radiographic evidence of active chest disease. Ordered By: MICHAEL ROSE Interpreted By: Leighton Miller MD, 07/04/2024 6:21 PM Narrative 07/04/2024 6:22 PM DEPUTY SHERIFF LIEUTENANT [place] [id number] [facility] [place] [address] Examination: XR CHEST PA+LAT Exam time: 07/04/2024 6:13 PM Clinical history: Chest pain Comparison: No prior exam Technique: Upright PA and lateral views Findings: Cardiac silhouette and pulmonary vasculature are within normal limits. Lungs appear clear. No evidence of pleural effusion. No evidence of pneumothorax. Procedure Note Leighton Miller MD - 07/04/2024 [place] [id number] [facility]. [place] [id number] Examination: XR CHEST PA+LAT Exam time: 07/04/2024 6:13 PM Clinical history: Chest pain Comparison: No prior exam Technique: Upright PA and lateral views Findings: Cardiac silhouette and pulmonary vasculature are within normallimits. Lungs appear clear. No evidence of pleural effusion. No evidenceof pneumothorax. IMPRESSION: No radiographic evidence of active chest disease. Ordered By: MICHAEL ROSE Interpreted By: Leighton Miller MD, 07/04/2024 6:21 PM Michael Rose MD GENERAL IMAGING Final Result * PARTIAL THROMBOPLASTIN TIME,PTT (07/04/2024 5:45 PM DEPUTY SHERIFF LIEUTENANT) PTT 35.3 27.0 - 36.8 SEC 07/04/2024 6:20 PM DEPUTY SHERIFF LIEUTENANT [facility] 07/04/2024 5:45 PM DEPUTY SHERIFF LIEUTENANT Michael Rose MD LABORATORY Final Result [facility] [address] [place] [address], [place] [phone] * PROTIME/INR, VENOUS (07/04/2024 5:45 PM DEPUTY SHERIFF LIEUTENANT) PROTIME 12.0 9.1 - 12.4 SEC 07/04/2024 6:20 PM DEPUTY SHERIFF LIEUTENANT [facility] INR 1.1 07/04/2024 6:20 PM [facility] Comment: Recommend INR ranges for Oral Anticoagulant Therapy: Mechanical Cardiac Values 2.5-3.5 All others indication 2.0-3.0 07/04/2024 5:45 PM DEPUTY SHERIFF LIEUTENANT us Michael Rose MD LABORATORY Final Result [facility] [address] [place] [address], * (ABNORMAL) COMPREHENSIVE METABOLIC PANEL (07/04/2024 5:45 PM DEPUTY SHERIFF LIEUTENANT) GLUCOSE 77 70 - 99 MG/DL 07/04/2024 6:23 PM [facility] BUN 18 7 - 18 MG/DL 07/04/2024 6:23 PM [facility] CREATININE S/P/B 1.17 0.7 - 1.3 MG/DL 07/04/2024 6:23 PM [facility] SODIUM S/P/B 143 136 - 145 MMOL/L 07/04/2024 6:23 PM [facility] POTASSIUM S/P/B 3.9 3.5 - 5.1 MMOL/L 07/04/2024 6:23 PM [facility] CHLORIDE S/P/B 105 100 - 108 MMOL/L 07/04/2024 6:23 PM [facility] CO2 28.8 21 - 32 MMOL/L 07/04/2024 6:23 PM [facility] CALCIUM S/P/B 9.0 8.5 - 10.1 MG/DL 07/04/2024 6:23 PM [facility] BILIRUBIN TOTAL S/P/B 0.3 0.2 - 1.2 MG/DL 07/04/2024 6:23 PM [facility] TOTAL PROTEIN S/P/B 7.6 6.4 - 8.2 G/DL 07/04/2024 6:23 PM [facility] ALBUMIN S/P/B 4.2 3.4 - 5.0 G/DL 07/04/2024 6:23 PM [facility] AST 20 15 - 37 U/L 07/04/2024 6:23 PM [facility] ALT 45 16 - 60 U/L 07/04/2024 6:23 PM [facility] ALKALINE PHOSPHATASE S/P/B 62 50 - 136 U/L 07/04/2024 6:23 PM [facility] ANION GAP 9.2 5 - 15 MMOL/L 07/04/2024 6:23 PM [facility] BUN CREATININE RATIO 15.4 6 - 26 07/04/2024 6:23 PM [facility] A/G RATIO 1.2 1.0 - 2.0 RATIO 07/04/2024 6:23 PM [facility] GFR ESTIMATE 85(L) >90 ML/MIN/1.7 3 M2 07/04/2024 6:23 PM [facility] Comment: NOTE: eGFR is not calculated for patients <18 years of age. This is an estimated GFR calculation using the new CKD EPI creatinine equation without race and so does not require a correction factor for race. This estimated GFR should not be used for calculating drug doses. 07/04/2024 5:45 PM DEPUTY SHERIFF LIEUTENANT us Michael Rose MD LABORATORY Final Result [facility] [address] [place] [address], [place] [phone] * D-DIMER, QUANTITATIVE (07/04/2024 5:45 PM DEPUTY SHERIFF LIEUTENANT) [facility] D-DIMER <215 0 - 500 ng{FEU}/mL 07/04/2024 6:20 PM [facility] Comment: D-Dimer values less than or equal to 500 ng/mL FEU have a negative predictive value of >95% for exclusion of deep vein thrombosis and pulmonary embolism. In patients over 50 (who tend to have higher normal baseline D-Dimer values), recent studies suggest age-adjusted D-Dimer cutoff values (calculated as: age [years] x 10 ng/mL) result in equivalent outcomes and no additional false negative findings. 07/04/2024 5:45 PM DEPUTY SHERIFF LIEUTENANT us Michael Rose MD LABORATORY Final Result [facility] [address] [place] [address], [place] [phone] * (ABNORMAL) CBC W/DIFF AUTOMATED (07/04/2024 5:45 PM DEPUTY SHERIFF LIEUTENANT) [facility] WBC 6.31 4.4 - 11.0 x10'3/uL 07/04/2024 6:11 PM [facility] RBC 4.87 4.50 - 5.90 x10'6/uL 07/04/2024 6:11 PM [facility] HGB 14.9 14.0 - 17.5 G/DL 07/04/2024 6:11 PM [facility] HCT 43.8 41.5 - 50.4 % 07/04/2024 6:11 PM [facility] MCV 89.9 80.0 - 96.0 FL 07/04/2024 6:11 PM [facility] MCH 30.6 26.5 - 31.4 PG 07/04/2024 6:11 PM [facility] MCHC 34.0 31.9 - 34.8 G/DL 07/04/2024 6:11 PM [facility] RDW 12.8 12.3 - 14.3 % 07/04/2024 6:11 PM [facility] PLT 197 151 - 353 x10'3/uL 07/04/2024 6:11 PM [facility] MPV 10.6 9.7 - 11.9 FL 07/04/2024 6:11 PM [facility] RBC MORPHOLOGY NORMAL 07/04/2024 6:11 PM [facility] PLT MORPH. NORMAL 07/04/2024 6:11 PM [facility] WBC MORPHOLOGY NORMAL 07/04/2024 6:11 PM [facility] LYMPHOCYTES % 20.9 15.8 - 45.0 % 07/04/2024 6:11 PM [facility] NEUTROPHILS % 63.2 42.1 - 71.9 % 07/04/2024 6:11 PM [facility] MONOCYTES % 13.5(H) 5.7 - 12.5 % 07/04/2024 6:11 PM [facility] EOSINOPHILS 1.6 0.0 - 5.6 % 07/04/2024 6:11 PM [facility] BASOPHILS 0.5 0.0 - 1.3 % 07/04/2024 6:11 PM [facility] ABS. NEUTROPHILS 3.99 1.40 - 6.00 x10'3/uL 07/04/2024 6:11 PM [facility] IMMATURE GRANS % 0.3 0.0 - 0.5 % 07/04/2024 6:11 PM [facility] ABS. LYMPHOCYTES 1.32 0.80 - 4.70 x10'3/uL 07/04/2024 6:11 PM DEPUTY SHERIFF LIEUTENANT [facility] 07/04/2024 5:45 PM DEPUTY SHERIFF LIEUTENANT Michael Rose MD LABORATORY Final Result [facility] [address] [place] [address], [place] [phone] * ECG 12 lead (07/04/2024 5:36 PM DEPUTY SHERIFF LIEUTENANT) 07/04/2024 5:36 PM DEPUTY SHERIFF LIEUTENANT Narrative [facility] ([facility] RAD - 07/04/2024 8:35 PM DEPUTY SHERIFF LIEUTENANT [facility] Test Date: 2024-07-04 Pat Name: MERON YOO Department: 85 Room: EXAM 3 Gender: Male Facility Service Associate: : 1990 Requested By: MICHAEL ROSE Order Number: [id number] Yvan CORREA: Zeeshan House Measurements Intervals [place] Rate: 71 P: 47 [place]: 180 QRS: 62 QRSD: 126 T: 9 QT: 370 QTc: 404 Interpretive Statements SINUS RHYTHM POSSIBLE INFERIOR MYOCARDIAL INFARCTION , PROBABLY OLD [30 ms Q WAVE IN II/aVF] No previous ECG available for comparison TY SHERIFF LIEUTENANT Procedure Note Zeeshan House MD - 07/04/2024 [facility] Test Date: 2024-07-04 Pat Name: MERON YOO Department: 85 Room: EXAM 3 Gender: Male Facility Service Associate: : 1990 Requested By: MICHAEL ROSE Order Number: [id number] Yvan House Measurements Intervals [place] Rate: 71 P: 47 [place]: 180 QRS: 62 QRSD: 126 T: 9 QT: 370 QTc: 404 Interpretive Statements SINUS RHYTHM POSSIBLE INFERIOR MYOCARDIAL INFARCTION , PROBABLY OLD [30 ms Q WAVE IN II/aVF] No previous ECG available for comparison TY SHERIFF LIEUTENANT us Michael Rose MD ECG ORDERABLES Final Result [facility] ([facility] RAD from Last 3 Months Insurance [employer] Care Teams Resolution Manager Relationship Specialty Start Date End Date Sonia Hay, IAP DISPLAYS ANALYST-BC [address] [place] [address] PCP - General NURSE PRACTITIONER 11/23/23
== END 2024-09-21 15:51 | disposition home or self-care (01) ==
PROVIDERS: PCP Internal Medicine; Visit Provider Internal Medicine
DX: R51.9 Headache, unspecified (principal)
CPT/HCPCS: 70450

== ENCOUNTER 2025-03-11 10:21 | Emergency (ER) | payer OTHER, SELFPAY ==
--- NOTE | 2025-03-11 10:23 | ED_ITS ---
HPI - URI/Sore Throat General Chief Complaint: Upper Respiratory Infection Stated Complaint: chest cold Time Seen by Provider: 03/11/25 10:23 Source: patient Mode of arrival: ambulatory Limitations: no limitations History of Present Illness HPI Narrative: Patient is a 34-year-old male who presents with over 1 week of chest congestion and productive cough. Denies any congestion, sore throat, fever, chills, nausea vomiting, diarrhea. Has taken Mucinex this morning. Related Data Allergies Allergy/AdvReac Type Severity Reaction Status Date / Time amlodipine Allergy Intermediate red face, Verified 03/11/25 10:23 Headaches losartan Allergy Intermediate red face Verified 03/11/25 10:23 and headaches Review of Systems Review of Systems: All systems reviewed & are unremarkable except as noted in HPI and below Constitutional: Constitutional: Denies chills, Denies fatigue, Denies fever(s), Denies headache(s), Denies malaise and Denies weakness Eyes: Eyes: Denies blurry vision, Denies itchy eyes and Denies loss of vision ENT: Denies otalgia, Denies headache(s), Denies nasal congestion, Denies sinus pain and Denies sore throat Cardiovascular: Cardiovascular: Denies chest pain, Denies irregular heart rhythm and Denies dyspnea Respiratory: Respiratory: Reports chest congestion, Reports cough and Denies dyspnea Gastrointestinal: Gastrointestinal: Denies abdominal pain, Denies diarrhea, Denies nausea and Denies vomiting Musculoskeletal: Musculoskeletal: Denies back pain, Denies myalgias and Denies arthralgias Integumentary/Breasts: Skin/Breast: Denies pruritus and Denies rash Neurologic: Denies headache(s), Denies loss of vision and Denies weakness Psychiatric: Psychiatric: Reports no additional psychiatric complaints Endocrine: Endocrine: Denies fatigue Allergic/Immunologic: Allergic/Immunologic: Denies itchy eyes PMFSH Past Medical History Medical History Change in bowel habits Obesity (BMI 30.0-34.9) Hematochezia Hypertension Surgical History Surgical History S/P excision of lipoma excision 4 cm lipoma right flank, excision 3.8 cm lipoma right lower abdomen, excision 2.5 cm left upper abdominal lipoma 2/2/23 Hx of appendectomy History of eye surgery Family History Family History Father Hypertension Social History Social History Smoking status: Never smoker Tobacco type: cigarettes Second hand tobacco smoke exposure: No Smoking end date: 08/17/14 Additional smoking assessment comments: previously smoke socially Alcohol intake: current Drinks per week: 12 Alcohol use details: ON WEEKENDS Substance use: never Substance use type: does not use Other substance usage details: Occasional marijuana use. No recent use. Lack of Transportation: No Lack of Food: Never True Current Housing: I Have Housing Concerned About Future Housing: No Difficulty Paying Gas/Electric Bills: No Difficulty Paying for Meds: No Currently Unemployed: No Education: High School Diploma/GED Difficulty w/ Childcare or Family Care: No Living arrangements: with family Additional living arrangements comments: lives with girlfriend and son Occupation/Education: occupation Additional occupation/education comments: The patient works at [employer]. Gender identity (if verbalized by the patient): Male Spiritual care concerns: No Comments At time of signature, agree with nursing past medical, surgical, social and family history. There is no relevant family history pertinent to the presenting complaint. Exam Const: General: cooperative, healthy appearing, comfortable, no acute distress and well nourished Nutritional Appearance: well nourished Orientation/consciousness: patient oriented x3 Limitations: no limitations HENMT: Head: normal to inspection, normocephalic and atraumatic Ears: hearing grossly normal bilaterally, external ears normal, TM's normal bilaterally, EAC's normal and no periauricular adenopathy Face/Nose/Sinus: Normal external nose present, Normal nasal mucous membranes and turbinates present, normal facial exam, sinuses nontender and face symmetric Face and sinus: normal facial exam, sinuses nontender and face symmetric Mouth: Yes Normal oral and palatal mucosa present, Yes lip normal, Yes tongue normal, Yes Normal salivary glands and ducts present, Yes oropharynx normal and Yes moist mucous membranes Teeth and gingiva: dentition normal Throat: posterior oropharynx normal, tonsils normal and uvula midline Eyes: General: appearance normal, both eyes and all related structures Alignment and Position: alignment normal and position normal Periorbital: periorbital findings normal Eyelids: eyelids normal Pupils: Equal, round and reactive pupils present Neck: Neck: normal visual inspection, full ROM, no lymphadenopathy and supple Chest: Chest palpation & inspection: normal inspection of the chest and normal palpation of entire chest wall Resp: Effort & Inspection: normal respiratory effort and able to speak in complete sentences Auscultation: no crackles, no rales, rhonchi upper bilaterally ( Clears with deep cough) and no wheezes Cardio: Rate: regular rate Rhythm: regular rhythm Heart sounds: S1 normal heart sound present and S2 normal heart sound present GI: Inspection: normal to inspection Skin: General skin exam: normal color and no rashes or lesions noted Neuro: General: patient oriented x3 and moves all extremities Cranial nerves: Yes Equal, round and reactive pupils present Speech: normal speech Gait exam (Neuro): Normal gait present Extrem: General: normal to inspection, full ROM and no edema Psych: Appearance: grossly normal and well kempt Mental Status: mental status grossly normal Speech and movement: Normal speech and movement present Affect: normal affect Attitude: cooperative Thought process: Normal thought process present Course Course Emergency Course: Discharge instructions reviewed with patient, as well as provided in writing per nursing staff. The instructions also include specific and strict return/GO TO THE ER as well as f/u information. All questions have been answered, and the patient deny any further questions with discharge and discharge plan. Portions of this record may have been created with voice recognition software Level of Care: Express Care Visit Vital Signs Vital signs: Reviewed MDM - URI/Sore Throat MDM Narrative Medical decision making narrative: symptoms and exam consistent with purulent bronchitis. will treat with antibiotics, steroids and cough suppressants Pt well hydrated appearing, in no respiratory distress, hemodynamically stable. Recommend supportive care. The patient is stable at time of discharge the clinical impression was discussed and the patient was given the opportunity to ask questions, which were addressed as completely as possible given the information available at present. Anticipatory guidance and return to care precautions were discussed and the importance of primary care follow-up was stressed and encouraged. The patient voiced understanding of the plan, indications to return, and the need for follow-up. Exam findings show no acute concerns or changes Patient is appropriate for outpatient treatment and follow-up. Differential diagnosis considered: Thomas virus, strep pharyngitis, allergic rhinitis, upper respiratory tract infection, sinusitis, rhinosinusitis, nasopharyngitis. viral pharyngitis, otitis media, otitis externa, otitis e ffusion, foreign body, cerumen impaction, viral syndrome, and influenza.? Medical Records Attestation: I reviewed the patient's medical records. Discharge Plan Discharge Clinical Impression: Acute purulent bronchitis Patient Disposition: Home Condition: Stable Instructions: Acute Bronchitis (ED) Additional Instructions: Take antibiotic as prescribed. Take steroids in the morning with food. Use Tessalon Perles as needed for cough. Other symptomatic treatments include: -Alternate Tylenol and Motrin per package directions for fever or pain: Tylenol 650-1000mg by mouth every 4-6 hours. Do not exceed 4000mg in 24 hours. Advil (Ibuprofen) 600 mg by mouth every 6 hours. Do not exceed 2400mg in 24 hours. 8 AM: Tylenol 11 AM: Ibuprofen 2 PM: Tylenol 5 PM: Ibuprofen 8 PM: Tylenol 11 PM: Ibuprofen 2 AM: Tylenol 5 AM: Ibuprofen -Antihistamine medication such as Benadryl at night and Zyrtec/Claritin/Janae during the day can help improve symptoms. -Use Flonase twice a day for 5 days then daily to help reduce the inflammation and dry up your sinuses. -You can also use Sudafed or Mucinex. Be sure to drink plenty of water with these medications at least 8 ounces with every dose and it is important to drink 8 to 10 glasses of water per day. Water is a natural decongestant -Eat and drink things that are easy to swallow, like tea or soup, or popsicles. -Oral rinses such as: Salt water gargles and/or may use topical anesthetic (eg. Chloraseptic spray) or lozenges to relieve dryness or throat pain). -Frequent hand washing or hand telesales professional is one of the best ways to prevent spread of infection. -Using a vaporizer or humidifier at night will also help thin secretions and help with coughing up phlegm. Call your Primary Care Doctor and make a follow-up appointment in 3 days. If your cough worsens, you develop a fever greater than 103, you develop shaking chills, a fast heartbeat, trouble breathing and/or feel you are are breathing much faster than usual, call your Primary Care Doctor or go to the ER. Patient Language: Mohawk Prescriptions: New azithromycin 250 mg tablet See Rx Instructions .ROUTE .COMPLEX Qty: 6 0RF Rx Instructions: For 250 mg dose pack: take 500 mg today (day 1), then 250 mg for 4 days (days 2-5) prednisone 20 mg tablet 40 mg PO DAILY 5 Days Qty: 10 0RF benzonatate 100 mg capsule 100 mg PO BID PRN (Reason: cough) Qty: 14 0RF No Action propranolol 80 mg capsule,extended release 24hr See Rx Instructions .ROUTE .COMPLEX Qty: 90 2RF Dose Instruction: TAKE 1 CAPSULE BY MOUTH DAILY Rx Instructions: TAKE 1 CAPSULE BY MOUTH DAILY Follow-up/Referrals: Freddy Felix DO [Primary Care Provider] - 3 Days Time of Disposition: 10:38
--- OUTSIDE RECORDS SUMMARY | 2025-03-11 10:24 | XMS_ITS | Clinical Summary ---
Author Organization [facility] [employer] [place] Address [address] [place] [address] Care Team Providers Care Gyn Physician Name Role Phone Unavailable Primary Care Provider [...] Encounters Date Type Department Care Team Description 02/14/2025 External Device Data [facility] ABSTRACTION Provider, Abstract 01/04/2025 External Device Data [facility] ABSTRACTION Provider, Abstract 01/03/2025 External Device Data [facility] ABSTRACTION Provider, Abstract [...] on file Legal Sex Male 7:40 AM TRANSFER AND LINE UP WORKER Gender Identity Not on file Sexual Orientation Not on file Last Filed Vital Signs Vital Sign Reading Time Taken Comments Blood Pressure 118/84 09/16/2023 10:59 AM TRANSFER AND LINE UP WORKER Pulse 74 09/16/2023 10:59 AM TRANSFER AND LINE UP WORKER Temperature 36.6 C (97.8 F) 09/16/2023 10:59 AM TRANSFER AND LINE UP WORKER Respiratory Rate 16 09/16/2023 10:59 AM TRANSFER AND LINE UP WORKER Oxygen Saturation 97% 09/16/2023 10:59 AM TRANSFER AND LINE UP WORKER Inhaled Oxygen Concentration - - Weight 126.1 kg (278 lb) 09/16/2023 10:59 AM TRANSFER AND LINE UP WORKER Height 188 cm (6' 2) 09/16/2023 10:59 AM TRANSFER AND LINE UP WORKER Body Mass Index 35.69 09/16/2023 10:59 AM TRANSFER AND LINE UP WORKER Plan of Treatment Health Maintenance Due Date Last Done Comments HPV VACCINES (1 - Male 3-dos e series) 10/28/2006 DTAP/TDAP/TD VACCINES (1 - Tdap) 10/28/2010 HEPATITIS B VACCINES (1 of 3 - 19+ 3-dose series) 10/28/2010 INFLUENZA VACCINE (#1) 2025 , 04/30/2020, 06/01/2019
--- OUTSIDE RECORDS SUMMARY | 2025-03-11 10:24 | XMS_ITS | Clinical Summary ---
Author Organization [facility] Address [address] [place] [id number] Care Team Providers Care Gold Charmer Name Role Phone SatnamMaxinerylee Macedo [facility] Primary Care Provider + Allergies No known active allergies Medications propranolol LA (INDERAL LA) 80 MG 24 hr capsule Take 1 capsule (80 mg total) by mouth daily. 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 Pulse 74 07/04/2024 8:00 PM PAPER BAG MAKER Temperature 36.7 C (98 F) 07/04/2024 8:00 PM PAPER BAG MAKER Respiratory Rate 23 07/04/2024 8:00 PM PAPER BAG MAKER Oxygen Saturation 94% 07/04/2024 8:00 PM PAPER BAG MAKER Inhaled Oxygen Concentration - - Weight 118 kg (260 lb 2.3 oz) 07/04/2024 5:34 PM PAPER BAG MAKER Height 188 cm (6' 2) 07/04/2024 5:34 PM PAPER BAG MAKER Body Mass Index 33.4 07/04/2024 5:34 PM PAPER BAG MAKER Plan of Treatment Health Maintenance Due Date Last Done Comments Annual Physical 10/28/1994 Hepatitis C 10/28/2009 Hepatitis B Vaccines (1 of 3 - 19+ 3-dose series) 10/28/2010 HPV Vaccines (3 - Male 3-dos e series) 08/02/2018 05/10/2018, 01/19/2017 COVID-19 Vaccine (3 - 2024-2 5 season) 2024 05/21/2021, 04/30/2021 PHQ-2 (Physician Cunningham) 08/17/2024 DTaP, Tdap and Td Vaccines ( 3 - Td or Tdap) 04/29/2033 04/29/2023, 01/19/2015 Meningococcal B Vaccine Aged Out No l onger eligible based on patient's age to complete this topic Meningococcal Vaccine Aged Out No terrance sunny eligible based on patient's age to complete this topic Pneumococcal Vaccine: Pediatrics (0 to 5 Years) and At-Risk Patients (6 to 49 Years) Aged Out No longer eligible b ased on patient's age to complete this topic RSV Immunizations Under 20 Months Aged Out No longer eligible b ased on patient's age to complete this topic Insurance [employer] Care Teams Gold Charmer Relationship Specialty Start Date End Date Sonia Hay, HOT REPAIRMAN- [address] [place] [address] PCP - General NURSE PRACTITIONER 11/23/23
--- OUTSIDE RECORDS SUMMARY | 2025-03-11 10:24 | XMS_ITS | Encounter Summary ---
Author Organization [facility] Address [address] [place] [address] Care Team Providers Care Material Engineer Name Role Phone Unavailable Primary Care Provider Unavailabl e Encounter Details Date Type Department Care Team (Late st Contact Info) Description 12/31/2022 Lab Requisition [facility] [address] [place] [address] [place] [address] [facility] [address] [place] [phone] Social History Tobacco Use Types Packs/Day Years Used Date Smoking Tobacco: Never Smokeless Tobacco: Never Alcohol Use Standard Drinks/Week Comments Yes 12 (1 standard drink = 0.6 oz pu re alcohol) occasionally Sex and Gender Information Value Date Recorded Sex Assigned at Not on file 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 Blood 12/31/2022 11:5 5 AM CDT 12/31/2022 4:14 PM CDT Kaushik Marcial MD CHEMISTRY ORDERABLES Final R esult Performing Organization Address [facility] Co de Phone Number [id number] [address] [place] [address] * HEPATITIS B SURFACE ANTIGEN (12/31/2022 11:55 AM CDT) [facility] HEPATITIS B SURFACE AG NON-REACT KADE Non-react kade 12/31/2022 4:49 PM CDT [facility] Comment:A non-reactive test result does not exclude the possibility of exposure to or infection with hepatitis B. Blood 12/31/2022 11:5 5 AM CDT 12/31/2022 4:14 PM CDT Kaushik Marcial MD CHEMISTRY ORDERABLES Final R esult Performing Organization Address [facility]/ZIP Co de Phone Number [facility] CLIA# [id number] [address] [place] [address] * HEPATITIS C RNA PCR, QUANTITATIVE (12/31/2022 11:55 AM CDT) [facility] HCV RNA, QUANT REAL TIME PCR <15 NOT DETECTED NOT DETECTED IU/mL 01/01/2023 11:03 PM CDT [facility] HCV RNA QUANT PCR COPIES IU/ML <1.18 NOT DETECTED NOT DETECTED Log IU/mL 01/01/2023 11:03 PM CDT [facility] Comment: This test was performed using Real-Time Polymerase Chain Reaction. Reportable Range: 15 IU/mL to 100,000,000 IU/mL (1.18 Log IU/mL to 8.00 Log IU/mL). The analytical performance characteristics of this assay have been determined by [employer]. The modifications have not been cleared or approved by the FDA. This assay has been validated pursuant to the CLIA regulations and is used for clinical purposes. For more information on this test, go to: http://education.Kranem/faq/BXB42u0 (This link is being provided for informational/ educational purposes only.) Blood 12/31/2022 11:5 5 AM CDT 12/31/2022 4:14 PM CDT Narrative [facility] - 01/01/2023 11:03 PM CDT Performing Organization Information: Site ID: [place] Name: [employer] Address: [address] [address] [place] [address] Director: Andressa Koroma MD Kaushik Marcial MD CHEMISTRY ORDERABLES Final R esult [facility] [phone] * HIV DETECTION W/REFLX CONFIRMATION (12/31/2022 11:55 AM CDT) HIV-1 AND 2 ABS AND HIV-1 AG Non-reacti ve Non-reacti ve 12/31/2022 5:08 PM CDT [facility] [employer] [facility] Blood 12/31/2022 11:5 5 AM CDT 12/31/2022 4:14 PM CDT [facility] [employer] [facility] - 12/31/2022 5:08 PM CDT Initial HIV [...] ORDERABLES Final R esult Performing Organization Address City/State/[facility] Co de Phone Number [facility]# [id number] [address] [place] [address] documented in this encounter Visit Diagnoses Not on filedocumented in this encounter
[2025-03-11 10:29] VITALS: BP 138/89; PULSE 70; RESP 19; TEMP 36.2; O2SAT 97
== END 2025-03-11 10:39 | disposition home or self-care (01) ==
PROVIDERS: Emergency Provider Nurse Practitioner Family; PCP Internal Medicine
DX: J20.9 Acute bronchitis, unspecified (principal); Z87.891 Personal history of nicotine dependence; E55.9 Vitamin D deficiency, unspecified; E66.9 Obesity, unspecified; Z68.33 Body mass index [BMI] 33.0-33.9, adult
CPT/HCPCS: 99213; G0463